=== PATIENT | female | born 1985 | race Caucasian/White ===

== ENCOUNTER 2023-04-23 13:00 | Outpatient (RCR) | payer BC, OTHER, SELFPAY ==
--- NOTE | 2023-02-08 15:46 | OPREHPOC ---
Outpatient Therapy Plan of Care This is a Multidisciplinary Plan of Care that may contain components documented by all disciplines (PT, OT, and ST.) PT Problem 1 PT Problem #1 Knowledge Deficit PT Goal 1 Goal 1. Patient will perform independent HEP Target Visit 6 PT Problem 2 PT Problem #2 Pain PT Goal 1 Goal 1. Patient will report no pain with palpation of pelvic floor Target Visit 6 PT Goal 2 Goal 2. Patient will be able to stand and walk with pain no higher than 5/10 Target Visit 6 PT Problem 3 PT Problem #3 Impaired Strength PT Goal 1 Goal 1. Pelvic floor strength to 4/5 to decrease incontinence Target Visit 6 PT Goal 2 Goal 2. Pelvic floor endurance to 10 seconds to decrease incontinence Target Visit 6
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
--- NOTE | 2023-02-17 09:40 | PCPTNOTE ---
Patient did not show up for appointment 02/17/23. Called patient but voicemail was full.
--- NOTE | 2023-02-25 10:56 | PCPTNOTE ---
Patient did not show up for appointment today. Called patient and she stated she told someone last week she will be out of town this week. Stated she plans to be in next week.
--- NOTE | 2023-03-01 14:21 | PCPTNOTE ---
Cancelled appointment due to patient's insurance changing and no longer being contracted with [facility]. Will follow up with patient later this week.
--- NOTE | 2023-03-17 09:29 | PCPTNOTE ---
Patient did not show up to appointment 03/17/23. She was given the opportunity to reschedule to 03/23/23 and will discharge if another appointment is missed.
--- NOTE | 2023-03-23 13:45 | OPREHPOC ---
Outpatient Therapy Plan of Care This is a Multidisciplinary Plan of Care that may contain components documented by all disciplines (PT, OT, and ST.) PT Problem 1 PT Problem #1 Knowledge Deficit PT Goal 1 Goal 1. Patient will perform independent HEP Target Visit 6 Progress Partially Met PT Problem 2 PT Problem #2 Pain PT Goal 1 Goal 1. Patient will report no pain with palpation of pelvic floor Target Visit 6 Comment not assessed 03/23/23 per request PT Goal 2 Goal 2. Patient will be able to stand and walk with pain no higher than 5/10 Target Visit 6 Progress Met PT Problem 3 PT Problem #3 Impaired Strength PT Goal 1 Goal 1. Pelvic floor strength to 4/5 to decrease incontinence Target Visit 6 Comment not assessed 03/23/23 PT Goal 2 Goal 2. Pelvic floor endurance to 10 seconds to decrease incontinence Target Visit 6 Comment not assessed 03/23/23
--- NOTE | 2023-03-23 13:45 | PTOPPROG ---
Assessment and note entered by Araceli Alonzo DPMusa Evaluation Information Assessment Status Progress Subjective Information Pt feels some improvements with therapy. Feels stronger. Highest pain in last week 3/10 and lowest 0/10. Is getting urinary incontinence less often. Thinks she has had at least 2 instances of incontinence in the last week. Feels that more therapy would be beneficial, states she is still very concerned about the incontinence. Assessment PT Clinical Summary The patient has made good progress in therapy and reports greatly decreased pain overall. She also reports decreased urinary incontinence and displays improved hip strength. Due to her progress but continued pain and incontinence, she will benefit from further therapy to safely return to prior level of function. Plan of Care Interventions Electrical Stimulation,Hot Pack/Cold Pack,Manual Therapy,Neuro Re-education,Patient/Caregiver Education,Therapeutic Activities,Therapeutic Exercise PT Services Indicated Yes Treatment Frequency and 1 visit a week for 4 visits Duration These treatments will address the objective and functional deficits as defined above. The patient will be advanced safely and appropriately in order for the patient to progress towards his/her prior level of function. Additional exercises will be introduced and as well as a comprehensive home exercise program upon discharge, if needed, ?to ensure carryover of functional gains achieved in the clinic. This treatment plan has been reviewed and agreement upon by the patient.
--- NOTE | 2023-04-02 13:53 | PCPTNOTE ---
Patient called to cancel appointment 04/02/23.
--- NOTE | 2023-04-06 11:17 | PCPTNOTE ---
Patient did not show up for appointment on 04/06/23.
--- NOTE | 2023-04-23 13:28 | OPREHPOC ---
Outpatient Therapy Plan of Care This is a Multidisciplinary Plan of Care that may contain components documented by all disciplines (PT, OT, and ST.) PT Problem 1 PT Problem #1 Knowledge Deficit PT Goal 1 Goal 1. Patient will perform independent HEP Target Visit 6 Progress Met PT Problem 2 PT Problem #2 Pain PT Goal 1 Goal 1. Patient will report no pain with palpation of pelvic floor Target Visit 6 Progress Met Comment not assessed 03/23/23 per request PT Goal 2 Goal 2. Patient will be able to stand and walk with pain no higher than 5/10 Target Visit 6 Progress Met PT Problem 3 PT Problem #3 Impaired Strength PT Goal 1 Goal 1. Pelvic floor strength to 4/5 to decrease incontinence Target Visit 6 Progress Not Met Comment not assessed 03/23/23 PT Goal 2 Goal 2. Pelvic floor endurance to 10 seconds to decrease incontinence Target Visit 6 Progress Met Comment not assessed 03/23/23
--- NOTE | 2023-04-23 13:28 | PTOPDC ---
Assessment and note entered by Araceli Alonzo DPM[facility] Evaluation Information Assessment Status Discharge Subjective Information Pt continues to report improvements with therapy, has been able to be more active without pain. No recent pelvic pain. Reports incontinence has only been a couple times recently, worsened recently due to an outbreak of shingles and lots of coughing. Reported Pain Level Pain Score 0: Self Report Assessment PT Clinical Summary The patient has made good progress in therapy and reports no recent pelvic pain and has been able to be more active. She also reports greatly decreased incontinence overall and demonstrates improved pelvic floor endurance. Due to her progress, plan to discharge at this time. She has been educated to continue HEP and follow up with MD and/or PT as needed. Plan of Care PT Services Indicated No
== END 2023-04-23 14:35 | disposition home or self-care (01) ==
LOC: ANHGOSHPT 13:00
PROVIDERS: PCP Family Medicine; Visit Provider Advanced Practice Midwife
DX: R10.2 Pelvic and perineal pain (principal)
CPT/HCPCS: 97110; 97112; 97140; 97162; 97530; 99199